=== PATIENT | male | born 1985 | race Caucasian/White ===

== ENCOUNTER 2017-01-04 22:29 | Emergency (ER) | payer BC, OTHER ==
[~2017-01-04] VITALS: Ht 175.3 cm; Wt 90.0 kg
[2017-01-04 23:14] VITALS: Ht 175.3 cm; Wt 90.0 kg
[2017-01-05] MEDS ORDERED: SOD CHLORIDE 0.9% 1,000 ML IV STA (00:44)
[2017-01-05] MEDS ORDERED: ASPIRIN 325 MG TAB PO ONE (01:00)
--- NOTE | 2017-01-05 01:12 | ERD ---
ER Documentation Chief Complaint Chief Complaint Lt side weakness and numbness 2 hours [employer] but since resolved. HPI This is a 31-year-old who states that 2 hours ago he was eating dinner and had a sudden loss of vision in the left eye that he stated it look like everything looked cloudy and then everything in the left lower quadrant was dark. He states a few seconds later he developed pain in his head that was described as ice pick like underneath and behind both eyes that was throbbing. He then developed some tingling in his left face and arm and his left face arm and leg felt somewhat heavy. He says most of the sensation was a numbness and not weakness. He had no slurring of his speech. He states that in the waiting room his symptoms improved and his headache is nearly gone. He said over the past 2 minutes his headache is virtually nonexistent. He says he does have a history of headaches that last several days but are different from this wound. Currently he states he feels like his left arm has hyperesthesia in his left leg around the calf feels like he has a blood pressure cuff around it ROS All systems reviewed and are negative except as per history of present illness. Medications Home Meds Active Scripts Hydrocodone/Acetaminophen ([place] 10-325 Tablet) 1 Each Tablet, 1 TAB PO Q6H Y for PAIN, #20 TAB Prov:MARICARMEN SHARP DO 01/05/17 Allergies Allergies: Coded Allergies: No Known Allergy (Unverified , 01/04/17) PMhx/Soc Medical and Surgical Hx: pt denies Medical Hx, pt denies Surgical Hx Hx Alcohol Use: No Hx Substance Use: No Hx Tobacco Use: No Smoking Status: Never smoker FmHx Family History: No coronary disease Physical Exam Vitals Vital Signs Date Time Temp Pulse Resp B/P Pulse Ox O2 Delivery O2 Flow Rate FiO2 01/05/17 04:07 98.1 82 17 121/82 98 Room Air 01/05/17 00:25 98.1 76 19 130/81 98 Room Air 01/04/17 23:14 97.4 65 18 133/82 96 Physical Exam Const: Well-developed, well-nourished Head: Atraumatic, normocephalic Eyes: Normal Conjunctiva, PERRLA, EOMI, normal sclera, no nystagmus ENT: Normal External Ears, Nose and Mouth, moist mucus membranes. Neck: Full range of motion. No meningismus, no lymphadenopathy. Resp: Clear to auscultation bilaterally, no wheezing, rhonchi, rales Cardio: Regular rate and rhythm, no murmurs, S1 S2 present Abd: Soft, non tender x 4, non distended. Normal bowel sounds, no guarding or rebound, no pulsitile abdominal masses or bruits Skin: No petechiae or rashes, no ecchymosis , no maculopapular rash Back: No midline or flank tenderness Ext: No cyanosis, or edema, FROM x 4, normal inspection, neurovascularly intact x 4 Neur: Awake and alert, STR 5/5 x 4, sensation intact x 4, slight hyperesthetic feeling to the left arm n cerebellum intact Psych: Normal Mood and Affect Result Diagram: 01/05/1712401/05/17124 Results 24 hrs Laboratory Tests Test 01/05/17 01:25 White Blood Count 8.810^3/ul Red Blood Count 4.7810^6/ul Hemoglobin 15.4g/dl Hematocrit 43.3% Mean Corpuscular Volume 90.6fl Mean Corpuscular Hemoglobin 32.2pg Mean Corpuscular Hemoglobin Concent 35.6g/dl Red Cell Distribution Width 12.2% Platelet Count 89552^3/UL Mean Platelet Volume 10.3fl Neutrophils % 56.0% Lymphocytes % 34.6% Monocytes % 4.4% Eosinophils % 4.4% Basophils % 0.5% Nucleated Red Blood Cells % 0.0/100WBC Neutrophils # 4.910^3/ul Lymphocytes # 3.010^3/ul Monocytes # 0.410^3/ul Eosinophils # 0.410^3/ul Basophils # 0.010^3/ul Nucleated Red Blood Cells # 0.010^3/ul Prothrombin Time 13.6Sec Prothrombin Time Ratio 1.1 INR International Normalized Ratio 1.04 Activated Partial Thromboplast Time 27.9Sec Sodium Level 138mmol/L Potassium Level 4.1mmol/L Chloride Level 102mmol/L Carbon Dioxide Level 29mmol/L Anion Gap 11 Blood Urea Nitrogen 16mg/dl Creatinine 0.90mg/dl Glucose Level 86mg/dl Calcium Level 9.6mg/dl Current Medications Medications (Trade) Dose Ordered Sig/[place] Route PRN Reason Start Time Stop Time Status Last Admin Dose Admin Sodium Chloride (NS) 1,000 ml @ 1,000 mls/hr Q1H STAT IV 01/05/17 00:44 01/05/17 01:43 DC 01/05/17 00:44 Aspirin (Aspirin) 325 mg ONCE ONCE PO 01/05/17 01:00 01/05/17 01:01 DC 01/05/17 01:00 Procedures/MDM Patient CT scan read by radiology is negative for any acute process. CT scan of head with no IV contrast After some hours reevaluation was done the patient says he is completely asymptomatic. After talking with him or the patient says that this headache is actually like his headaches in the past that he has had for years the last 2 days. He says he gets a piercing stabbing pain behind both eyes that is throbbing with photophobia phonophobia and position change worsening. He said he looked up complex migraine while we were doing the workup. He says is exactly how he presented today. I do agree that this is a complex migraine and not a CVA. Discussed warning signs to return Departure Diagnosis: Primary Impression: Migraine headache with aura Status migrainosus presence: without status migrainosus Intractability: not intractable Qualified Code: G43.109 - Migraine with aura and without status migrainosus, not intractable Condition: Stable MARICARMEN SHARP DO Jan 05, 2017 01:12
[2017-01-05 01:48] LABS: BASOPHILS % 0.5 % (0.0-2.0); EOSINOPHILS # 0.4 10^3/ul (0.0-0.5); EOSINOPHILS % 4.4 % (0.0-7.0); HEMATOCRIT 43.3 % (42.0-52.0); HEMOGLOBIN 15.4 g/dl (14.0-18.0); LYMPHOCYTES % 34.6 % (15.0-51.0); MEAN CORPUSCULAR HEMOGLOBIN 32.2 pg (29.0-33.0); MEAN CORPUSCULAR HGB CONC 35.6 g/dl (32.0-37.0); MEAN CORPUSCULAR VOLUME 90.6 fl (82.0-101.0); MEAN PLATELET VOLUME 10.3 fl (7.4-10.4); MONOCYTE # 0.4 10^3/ul (0.3-0.9); MONOCYTES % 4.4 % (0.0-11.0); NEUTROPHIL # 4.9 10^3/ul (1.6-7.5); PLATELET COUNT 187 10^3/UL (140-415); RED BLOOD COUNT 4.78 10^6/ul (4.70-6.10); RED CELL DISTRIBUTION WIDTH 12.2 % (11.5-14.5); WHITE BLOOD COUNT 8.8 10^3/ul (4.8-10.8)
[2017-01-05 02:09] LABS: INR 1.04; PROTIME 13.6 Sec (12.2-14.2); PT RATIO 1.1
[2017-01-05 02:10] LABS: PARTIAL THROMBOPLASTIN TIME 27.9 Sec (25.0-35.0)
[2017-01-05 02:11] LABS: CALCIUM 9.6 mg/dl (8.4-10.2); CREATININE 0.9 mg/dl (0.61-1.24); POTASSIUM 4.1 mmol/L (3.5-5.1)
[2017-01-05 04:07] VITALS: BP 121/82; PULSE 82; RESP 17; TEMP 98.1
[2017-01-05] MEDS ORDERED: HYDR-902 PO (04:49)
--- NOTE | 2017-01-05 08:39 | RADRPT ---
PROCEDURE: CT BRAIN WITHOUT CONTRAST CLINICAL INDICATION: 31-year-old male with headaches. TECHNIQUE: The study was performed utilizing a GE [employer] VCT 64-slice CT scanner. Direct axia l sections were obtained from the foramen magnum to the vertex without the use of intravenous contra st material. Sagittal and coronal reformations were obtained. One or more the following dose reduct ion techniques were utilized: automated exposure control, adjustment of the mA and/or kV according t o patient's size and/or the use of iterative reconstruction technique. The images were viewed on a PACS workstation. CTD/vol = 45.0 mGy; Total Exam DLP = 720.2 mGy-cm. COMPARISON: None. FINDINGS: The ventricles have a normal size, shape and position. There is no evidence for mass effect or midl ine shift. There are no intracranial areas of abnormal attenuation. There is no evidence for acute intra or extra-axial blood. The bony calvarium is intact. The partially visualized paranasal sinuse s and mastoid air cells are without abnormal soft tissue. IMPRESSION: Unremarkable noncontrast CT scan of the brain. .Nazario Ansari MD, MD Date Time Electronically viewed and signed by .Nazario Ansari MD, on 01/05/2017 04:17 .M/
== END 2017-01-05 05:35 | disposition home or self-care (01) ==
LOC: E/R 22:29
DX: G43.109 Migraine with aura, not intractable, without status migrainosus (principal); R07.9 Chest pain, unspecified
CPT/HCPCS: 36415; 70450; 80048; 85025; 85610; 85730; 99285; J7030